=== PATIENT | male | born 1955 | race Caucasian/White ===

== ENCOUNTER 2021-07-23 22:48 | Emergency (ER) | payer MEDICAID, OTHER ==
[~2021-07-23] VITALS: Ht 182.9 cm; Wt 90.7 kg
[2021-07-23 23:56] LABS: Mean Corpuscular Hgb Conc. 27.2 g/dL (32.0-36.0)
[2021-07-23 23:58] LABS: Hematocrit 9.9 % (41.0-53.0); Mean Corpuscular Hemoglobin 20.2 pg (28.0-32.0); Mean Corpuscular Volume 74.3 fL (80.0-100.0); Red Blood Cells 1.33 10^6/uL (4.5-5.90)
[2021-07-24] VITALS (13 sets, daily range): BP systolic 92–126; BP diastolic 38–68
[2021-07-24 00:14] LABS: Hemoglobin 2.7 g/dL (13.5-17.5)
[2021-07-24 00:15] LABS: Basophils % (manual) 0 (0.0-2.0); Blast Cells 0; Eosinophils % (manual) 0 (0-7); Metamyelocytes % 0; Myelocytes % 0; Promyelocytes % 0; Reactive Lymphocytes 0
[2021-07-24 00:20] LABS: Albumin 2.1 g/dL (3.4-5.0); Calcium 7.8 mg/dL (8.5-10.1); Potassium 4.9 mmol/L (3.5-5.1)
[2021-07-24 00:26] LABS: BUN/Creatinine Ratio 31.5; Bilirubin, Total 2.2 mg/dL (0.2-1.0); Total Protein 5.8 g/dL (6.4-8.2)
[2021-07-24] MEDS ORDERED: PIPERACILLIN-TAZOB 3.375GM 100 ML IV ONE (00:45)
[2021-07-24] MEDS ORDERED: PANTOPRAZOLE 40mg/50ML NS AE 50 ML IV ONE (01:00)
[2021-07-24] MEDS ORDERED: PANTOPRAZOLE 80 MG in SODIUM CHL 0.9% 100 ML IV ONE (01:00)
[2021-07-24 01:06] LABS: INR 1.53 (0.9-1.15); Partial Thromboplastin Time 20.3 sec (23.6-33.0)
[2021-07-24] MEDS ORDERED: PANTOPRAZOLE 40 MG/10 ML VIAL INJ IV ONE (01:22)
[2021-07-24] MEDS ORDERED: ACETAMINOPHEN 500 MG TAB PO ONE (01:30)
[2021-07-24] MEDS ORDERED: diphenhdrAMINE HCL 50 MG/1 ML VL IV ONE (01:30)
[2021-07-24 01:43] LABS: Band Neutrophils % (manual) 5; Lymphocytes % (manual) 7 (10.0-50.0); Monocytes % (manual) 10 (0-12)
[2021-07-24] MEDS ORDERED: IOHEXOL 350 MG/ML 100ML IJ ONE ×2 (01:52→07:06)
[2021-07-24 06:34] LABS: Urine Bacteria NONE SEEN /hpf (None Seen); Urine Blood Negative /uL (Negative); Urine Specific Gravity 1.028 (1.001-1.035); Urine WBC 3 /hpf (0 - 3)
[2021-07-24] MEDS ORDERED: ACETYLCYSTEINE ORAL for CIN 20%(200MG/ML) 4ML PO ONE (06:45)
[2021-07-24] MEDS ORDERED: FUROSEMIDE 20 MG/2 ML VIAL IV ONE ×2 (07:15→14:45)
[2021-07-24 09:42] LABS: Hematocrit 13.3 % (41.0-53.0); Mean Corpuscular Hgb Conc. 32.2 g/dL (32.0-36.0); Mean Corpuscular Volume 77.6 fL (80.0-100.0); Red Blood Cells 1.72 10^6/uL (4.5-5.90); White Blood Cell 10.4 10^3/uL (4.4-10.8)
[2021-07-24 09:50] LABS: Hemoglobin 4.3 g/dL (13.5-17.5); Red Cell Distribution Width 21.3 % (11.8-14.3)
[2021-07-24 09:51] LABS: Band Neutrophils % (manual) 0; Basophils % (manual) 0 (0.0-2.0); Blast Cells 0; Eosinophils % (manual) 0 (0-7); Metamyelocytes % 0; Myelocytes % 0; Promyelocytes % 0; Reactive Lymphocytes 0
[2021-07-24] MEDS ORDERED: PHYTONADIONE (VIT K)10 MG/ML 1ML VIAL IV ONE (10:00)
[2021-07-24 10:11] LABS: Lymphocytes % (manual) 27 (10.0-50.0); Monocytes % (manual) 6 (0-12)
[2021-07-24] MEDS ORDERED: phytonadione 10 MG in SODIUM CHL 0.9% 50 ML IV ONE (10:15)
[2021-07-24] MEDS ORDERED: SUCRALFATE 1 GM/10 ML ORAL SUSP PO SCH (11:30)
[2021-07-24] MEDS ORDERED: NOREPINEPHRINE 8 MG/250ML KIT 250 ML IV SCH (13:00)
[2021-07-24] MEDS ORDERED: PANTOPRAZOLE 40 MG/10 ML VIAL INJ IV SCH (22:00)
== END 2021-07-24 11:48 | disposition short-term general hospital (02) ==
LOC: ER 22:48 → EDBD 22:48 → ER 07-24 11:48
DX: D64.9 Anemia, unspecified (principal); K92.2 Gastrointestinal hemorrhage, unspecified; J18.1 Lobar pneumonia, unspecified organism; J44.9 Chronic obstructive pulmonary disease, unspecified; Z20.822 Contact with and (suspected) exposure to COVID-19
CPT/HCPCS: 36415; 36430; 71045; 71260; 74175; 74177; 80053; 81001; 83880; 84484; 85007; 85027; 85610; 85730; 86850; 86900; 86901; 86920; 87040; 87426; 93005; 96365; 96366; 96367; 96368; 96375; 99291; C9113; C9803; J1940; J2543; J3430; J7030; P9016; Q9967; U0003